=== PATIENT | male | born 1985 | race Caucasian/White ===

== ENCOUNTER 2019-05-04 20:38 | Emergency (ER) | payer BC ==
[2019-05-04] MEDS ORDERED: Labetalol IV* 5 MG/ML 20 ML VIAL IV PUSH ONE ×2 (21:22→23:34)
[2019-05-04] MEDS ORDERED: LORazepam INJ* 2 MG/ML 1 ML VIAL IV PUSH ONE (21:23)
[2019-05-04] MEDS ORDERED: Lorazepam PYXIS KEY PRN (21:23)
--- NOTE | 2019-05-04 21:27 | ED ---
HPI Chest Pain - HPI Summary HPI Summary: This pt is a 34 Y/O M presenting to [facility] with his and a CC of mid-sternal chest pain that was intermittent for 4 hours and with episodes lasting around 1 sec with inhalation. He states that the pain was rated a 1/10 in severity. 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 He also stated that he had headaches earlier this morning prior to the onset. He denies any N/V /D, abdominal pain, fevers, chills, and edema. He states that he currently smokes around 3/4th a PPD of cigarettes and has a pertinent family Hx of HTN in both his maternal and paternal sides. - History of Current Complaint Chief Complaint: EDChestPainROMI Time Seen by Provider: 05/04/19 21:13 Hx Obtained From: Patient Onset/Duration: Started Hours Ago - 4 Time of Onset: 17:30 Timing: Intermittent, Lasting Seconds - 1 Initial Severity: Mild - rated at the highest a 1/10 Current Severity: None Pain Intensity: 0 Pain Scale Used: 0-10 Numeric Chest Pain Location: Mid Sternal Chest Pain Radiates: No Aggravating Factor(s): Nothing Alleviating Factor(s): Nothing Associated Signs and Symptoms: Positive: Negative - diarrhea, Chest Pain - mid- sternal, Headaches. Negative: Fever, Chills, Nausea, Cough, Abdominal Pain, Edema - Allergy/Home Medications Allergies/Adverse Reactions: Allergies Allergy/AdvReac Type Severity Reaction Status Date / Time No Known Allergies Allergy Verified 05/04/19 20:49 PMH/Surg Hx/FS Hx/Imm Hx Previously Healthy: Yes Endocrine/Hematology History: Denies: Hx Diabetes Respiratory History: Denies: Hx Asthma GI History: Denies: Hx Diverticulosis Sensory History: Denies: Hx Contacts or Glasses Opthamlomology History: Denies: Hx Contacts or Glasses - Surgical History Surgical History: None - Immunization History Immunizations Up to Date: Yes Infectious Disease History: No Infectious Disease History: Denies: Traveled Outside the [place] in Last 30 Days - Family History Known Family History: Positive: Hypertension - maternal and paternal - Social History Occupation: Employed Full-time Lives: With Family Alcohol Use: Daily Alcohol Amount: couple of beers a night Hx Substance Use: No Substance Use Type: Reports: None Hx Tobacco Use: Yes Smoking Status (MU): Heavy Every Day Tobacco Smoker Type: Cigarettes Amount Used/How Often: 3/4 PPD Review of Systems Negative: Fever, Chills Positive: Chest Pain - mid-sternal Negative: Shortness Of Breath, Cough Negative: Abdominal Pain, Vomiting, Diarrhea, Nausea Negative: Edema Positive: Headache All Other Systems Reviewed And Are Negative: Yes Physical Exam - Summary Physical Exam Summary: VITAL SIGNS: Reviewed. GENERAL: Patient is a well-developed and morbidly obese male who is lying comfortable in the stretcher. Patient is not in any acute respiratory distress. HEAD AND FACE: No signs of trauma. No ecchymosis, hematomas or skull depressions. No sinus tenderness. EYES: PERRLA, EOMI x 2, No injected conjunctiva, no nystagmus. EARS: Hearing grossly intact. Ear canals and tympanic membranes are within normal limits. MOUTH: Oropharynx within normal limits. NECK: Supple, trachea is midline, no adenopathy, no JVD, no carotid bruit, no c- spine tenderness, neck with full ROM CHEST: Symmetric, no tenderness at palpation LUNGS: Clear to auscultation bilaterally. No wheezing or crackles. CVS: Regular rate and rhythm, S1 and S2 present, no murmurs or gallops appreciated. ABDOMEN: Soft, non-tender. No signs of distention. No rebound no guarding, and no masses palpated. Bowel sounds are normal. EXTREMITIES: FROM in all major joints, no edema, no cyanosis or clubbing. NEURO: Alert and oriented x 3. No acute neurological deficits. Speech is normal and follows commands. SKIN: Dry and warm Triage Information Reviewed: Yes Vital Signs On Initial Exam: Initial Vitals Temp Pulse Resp BP Pulse Ox 97.8 F 80 18 191/124 100 05/04/19 20:46 05/04/19 20:46 05/04/19 20:46 05/04/19 20:46 05/04/19 20:46 Vital Signs Reviewed: Yes Diagnostics - Vital Signs Vital Signs Temp Pulse Resp BP Pulse Ox 05/04/19 20:46 97.8 F 80 18 191/124 100 - Laboratory Result Diagrams: 05/04/19 21:34 05/04/19 21:34 Lab Statement: Any lab studies that have been ordered have been reviewed, and results considered in the medical decision making process. - CT Chest/A/P CTA CT Interpretation Completed By: Radiologist Summary of CT Findings: No acute findings in the chest. No thoracic aortic aneurysm or dissection. ED physician has reviewed this report. - EKG 2039 Cardiac Rate: NL - 83 BPM EKG Rhythm: Sinus Rhythm ST Segment: Normal Ectopy: None Summary of EKG Findings: Sinus rhythm of a rate of 83 BPM with Normal axis. Normal interval. No ischemic changes. Interpreted by Dr. White at 204205/04/19. Chest Pain Course/Dx - Course Course Of Treatment: This pt is a 34 Y/O M presenting to [facility] with his and a CC of mid-sternal chest pain that was intermittent for 4 hours and with episodes lasting around 1 sec with inhalation. He states that the pain was rated a 1/10 in severity. 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 He also stated that he had headaches earlier this morning prior to the onset. His PE found that the pt was morbidly obese but no other abnormalities. His EKG showed that he has a Sinus rhythm of a rate of 83 BPM with Normal axis. Normal interval. No ischemic changes. His CTA chest/abdomen/ pelvis found the following: No acute findings in the chest. No thoracic aortic aneurysm or dissection. He had no abnormal lab findings and will be discharged home with a Dx of HTN and atypical chest pain. - Diagnoses Provider Diagnoses: Atypical chest pain, HTN (hypertension) Discharge - Sign-Out/Discharge Documenting (check all that apply): Patient Departure - discharge Patient Received Moderate/Deep Sedation with Procedure: No - Discharge Plan Condition: Stable Disposition: HOME Prescriptions: Lisinopril/HCTZ 07/18.(NF) [Zestoretic 07/18.(NF)] 1 tab PO DAILY #30 tab Patient Education Materials: Chest Pain (ED), Chronic Hypertension (ED) [facility]errals: [facility] [Outside] - 2 Days Additional Instructions: Please follow up with the [facility] in the next 2-3 days and return to the emergency department with any new or worsening symptoms. - Attestation Statements Document Initiated by Scribe: Yes Documenting Scribe: Freddy Del Valle Provider For Whom Scribe is Documenting (Include Credential): Anjel White MD Scribe Attestation: Freddy Hutchinson, scribed for Anjel White MD on 05/05/19 at 0204. Status of Scribe Document: Ready
[2019-05-04 21:41] LABS: ABS Basophils 0.1 10^3/ul (0-0.2); ABS Eosinophils 0.3 10^3/ul (0-0.6); ABS Lymphocytes 2.3 10^3/ul (1.0-4.8); ABS Monocytes 0.7 10^3/ul (0-0.8); Hematocrit 48 % (42-52); Hemoglobin 16.7 g/dL (14.0-18.0); Lymphocyte % 21.9 %; Mean Corpuscular HGB Conc 35 g/dL (31-36); Mean Corpuscular Hemoglobin 33 pg (27-31); Mean Corpuscular Volume 95 fL (80-94); Platelet Count 212 10^3/uL (150-450); Red Cell Distribution Width 13 % (10-15); White Blood Count 10.4 10^3/uL (3.5-10.8)
[2019-05-04 21:51] LABS: Activated Partial Thrombo Time 36.2 seconds (26.0-38.0); INR 1.09 (0.82-1.09)
[2019-05-04 22:00] LABS: Albumin 4.6 g/dL (3.2-5.2); Albumin/Globulin Ratio 1.4 (1-3); BUN/Creatinine Ratio 14.8 (8-20); Calcium 10.3 mg/dL (8.6-10.3); EGFR African American 83.3 (>60); EGFR Non-African American 68.8 (>60); Globulin 3.4 g/dL (2-4); Magnesium 2.1 mg/dL (1.9-2.7); Total Bilirubin 0.8 mg/dL (0.2-1.0)
[2019-05-04 22:02] LABS: Troponin I 0.02 ng/mL (<0.04)
[2019-05-04] MEDS ORDERED: Iohexol 350* (CONTRAST) 500 ML MDV IV ONE (22:05)
[2019-05-05 02:35] VITALS: BP 158/101
== END 2019-05-05 02:33 | disposition home or self-care (01) ==
LOC: ED 20:38
DX: R07.89 Other chest pain (principal); I10 Essential (primary) hypertension; F17.210 Nicotine dependence, cigarettes, uncomplicated
CPT/HCPCS: 36415; 71275; 74174; 80053; 82550; 83735; 84484; 85025; 85610; 85730; 93005; 96374; 96375; 96376; 99284; Q9967

== ENCOUNTER 2019-08-06 11:22 | Emergency (ER) | payer BC ==
[2019-08-06 11:47] LABS: ABS Basophils 0.1 10^3/ul (0-0.2); ABS Eosinophils 0.2 10^3/ul (0-0.6); ABS Lymphocytes 1.7 10^3/ul (1.0-4.8); ABS Monocytes 0.6 10^3/ul (0-0.8); ABS Neutrophils 4.6 10^3/ul (1.5-7.7); Eosinophil % 2.4 %; Hematocrit 46 % (42-52); Hemoglobin 15.7 g/dL (14.0-18.0); Lymphocyte % 23.2 %; Mean Corpuscular HGB Conc 34 g/dL (31-36); Mean Corpuscular Hemoglobin 33 pg (27-31); Mean Corpuscular Volume 96 fL (80-94); Platelet Count 235 10^3/uL (150-450); Red Blood Count 4.78 10^6 /uL (4.18-5.48); Red Cell Distribution Width 13 % (10-15); White Blood Count 7.2 10^3/uL (3.5-10.8)
--- NOTE | 2019-08-06 11:49 | ED ---
HPI Chest Pain - HPI Summary HPI Summary: Patient is a 34 y/o M presenting to the ED for a chief complaint of intermittent chest pain that began on 08/02/19. Patient describes the chest pain as diffuse, but more on the left than right side. Patient reports intermittent SOB and a rash on the chest. Patient states that he can feel his pulse. Patient states that he has gained weight over the last year, but has been attempting to lose weight recently. Patient reports that the chest pain is worse in the first half of the day, but denies the pain worsens on exertion. Patient denies palpitations, cough, bilateral LE pain or swelling, or weakness in the bilateral LE. Patient was previously seen at [facility] for chest pain and HTN 2 months ago. Patient states that about 10 years ago, he had similar symptoms and was diagnosed with panic attacks. Patient had a cardiac stress test performed 10 years ago. Patient denies any recent travel. Patient has a PMHx of HTN for which he has taken medication for the last 3 months. Patient denies a FMHx of stroke, blood clots, or cardiac disease. Patient is a former smoker and drinks 5-6 beers a day, but denies drug use. Patient works as a salesperson. - History of Current Complaint Chief Complaint: EDChestPainROMI Time Seen by Provider: 08/06/19 11:33 Hx Obtained From: Patient Onset/Duration: Atraumatic, Still Present Timing: Intermittent Initial Severity: Mild Current Severity: Mild Pain Intensity: 1 Pain Scale Used: 0-10 Numeric Chest Pain Location: Diffuse Chest Pain Radiates: No Aggravating Factor(s): Nothing Alleviating Factor(s): Nothing Associated Signs and Symptoms: Positive: Chest Pain, Weakness - Bilateral LE, Shortness of Breath. Negative: Palpitations, Cough, Calf Pain/Swelling, Edema - Allergy/Home Medications Allergies/Adverse Reactions: Allergies Allergy/AdvReac Type Severity Reaction Status Date / Time No Known Allergies Allergy Verified 05/04/19 20:49 Home Medications: Home Medications Ranitidine TAB (NF) [Zantac TAB (NF)] 150 mg PO BID PRN 08/06/19 [History Confirmed 08/06/19] PMH/Surg Hx/FS Hx/Imm Hx Previously Healthy: Yes Endocrine/Hematology History: Denies: Hx Diabetes Cardiovascular History: Denies: Hx Hypertension Respiratory History: Denies: Hx Asthma GI History: Denies: Hx Diverticulosis History: Denies: Hx Renal Disease Sensory History: Denies: Hx Contacts or Glasses, Hx Legally Blind, Hx Deafness Opthamlomology History: Denies: Hx Contacts or Glasses, Hx Legally Blind EENT History: Denies: Hx Deafness - Surgical History Surgical History: None Surgery Procedure, Year, and Place: None - Immunization History Date of Tetanus Vaccine: unk Date of Influenza Vaccine: none Infectious Disease History: No Infectious Disease History: Denies: Traveled Outside the [place] in Last 30 Days - Family History Known Family History: Positive: Hypertension - maternal and paternal Negative: Cardiac Disease - Social History Occupation: Employed Full-time Lives: With Family Alcohol Use: Daily Alcohol Amount: couple of beers a night Hx Substance Use: No Substance Use Type: Reports: None Hx Tobacco Use: Yes Smoking Status (MU): Heavy Every Day Tobacco Smoker Type: Cigarettes Amount Used/How Often: 3/4 PPD Review of Systems Positive: Other - Positive weight gain Positive: Chest Pain. Negative: Palpitations Positive: Shortness Of Breath - Intermittent. Negative: Cough Negative: Myalgia - Bilateral LE, Edema - Bilateral LE Positive: Rash - On chest Negative: Weakness - Bilateral LE All Other Systems Reviewed And Are Negative: Yes Physical Exam - Summary Physical Exam Summary: Constitutional: Well-developed, Well-nourished, Alert. (-) Distressed Skin: Warm, Dry HENT: Normocephalic; Atraumatic Eyes: Conjunctiva normal Neck: Musculoskeletal ROM normal neck. (-) JVD, (-) Stridor, (-) Tracheal deviation Cardio: Rhythm regular, rate normal, Heart sounds normal; Intact distal pulses; Radial pulses are 2+ and symmetric. (-) Murmur Pulmonary/Chest wall: Effort normal. (-) Respiratory distress, (-) Wheezes, (-) Rales Abd: Soft, (-) tenderness, (-) Distension, (-) Guarding, (-) Rebound Musculoskeletal: (-) Edema Lymph: (-) Cervical adenopathy Neuro: Alert, Oriented x3 Psych: Mood and affect Normal Triage Information Reviewed: Yes Vital Signs On Initial Exam: Initial Vitals Temp Pulse Resp BP Pulse Ox 96.1 F 69 18 164/95 100 08/06/19 11:28 08/06/19 11:28 08/06/19 11:28 08/06/19 11:28 08/06/19 11:28 Vital Signs Reviewed: Yes Procedures - Sedation Patient Received Moderate/Deep Sedation with Procedure: No Diagnostics - Vital Signs Vital Signs Temp Pulse Resp BP Pulse Ox 08/06/19 11:28 96.1 F 69 18 164/95 100 - Laboratory Result Diagrams: 08/06/19 11:35 08/06/19 11:35 Lab Statement: Any lab studies that have been ordered have been reviewed, and results considered in the medical decision making process. - Radiology Chest X-ray Radiology Interpretation Completed By: Radiologist Summary of Radiographic Findings: Chest X-ray IMPRESSION: NO ACUTE CARDIOPULMONARY PROCESS. Reviewed by ED physician. - EKG 11:21 Cardiac Rate: NL - 87 BPM EKG Rhythm: Sinus Rhythm ST Segment: Normal Ectopy: None Summary of EKG Findings: EKG at 11:21 reveals normal sinus rhythm with 87 BPM, early repolarization, no STEMI. Reviewed and interpreted by ED physician. Chest Pain Course/Dx - Course Course Of Treatment: Patient is here with chest pain that comes and goes. Patient's chest pain is not exertional does not sound cardiac in nature. Patient had negative CTA of his chest/abdomen/pelvis earlier this year. Patient had an EKG which showed no evidence of ischemia. Patient had negative serial troponins. Patient was encouraged helped his PCP for possible stress test. - Diagnoses Provider Diagnoses: Chest pain Discharge ED - Sign-Out/Discharge Documenting (check all that apply): Patient Departure - Discharge - Discharge Plan Condition: Stable Disposition: HOME Patient Education Materials: Chest Pain (ED) Referrals: [facility] [Outside] Additional Instructions: Follow up with your primary care provider for a cardiac stress test in 1-3 days. Return to the Emergency Department for worsening chest pain, shortness of breath, or other concerning symptoms. - Billing Disposition and Condition Condition: STABLE Disposition: Home - Attestation Statements Document Initiated by Gage: Yes Documenting Scribe: Jordana River Provider For Whom Gage is Documenting (Include Credential): Darrius Quiñones MD Scribe Attestation: Jordana Hutchinson, scribed for Darrius Quiñones MD on 08/06/19 at 2126. Scribe Documentation Reviewed: Yes Provider Attestation: The documentation as recorded by the Jordana moser Amquy accurately reflects the service I personally performed and the decisions made by me, Darrius Quiñones MD Status of Scribe Document: Viewed
[2019-08-06 12:01] LABS: INR 1.13 (0.82-1.09)
[2019-08-06 12:09] LABS: Albumin 4.7 g/dL (3.2-5.2); Albumin/Globulin Ratio 1.4 (1-3); Calcium 9.7 mg/dL (8.6-10.3); EGFR African American 96.9 (>60); EGFR Non-African American 80.1 (>60); Globulin 3.4 g/dL (2-4); Potassium 4.5 mmol/L (3.5-5.0); Total Bilirubin 0.6 mg/dL (0.2-1.0); Total Protein 8.1 g/dL (6.4-8.9)
[2019-08-06 15:53] VITALS: BP 155/98
== END 2019-08-06 15:55 | disposition home or self-care (01) ==
LOC: ED 11:22
DX: R07.9 Chest pain, unspecified (principal); I10 Essential (primary) hypertension; F17.210 Nicotine dependence, cigarettes, uncomplicated; Z79.899 Other long term (current) drug therapy
CPT/HCPCS: 36415; 71045; 80053; 84484; 85025; 85610; 93005; 99282